=== PATIENT | female | born 1945 | race Caucasian/White ===

== ENCOUNTER → 2017-05-05 | Outpatient (CLI) | payer MEDICARE, OTHER ==
[2017-05-05 12:23] LABS: HEMATOCRIT 35.4 % (36.0-47.0); HGB HCT DIFFERENCE 0.6; MEAN CORPUSCULAR HEMOGLOBIN 30.5 pg (27.0-33.4); MEAN CORPUSCULAR VOLUME 90 fl (80-97); RED BLOOD COUNT 3.95 10^6/uL (3.72-5.28); RED CELL DISTRIBUTION WIDTH 13.2 % (11.5-14.0); WHITE BLOOD COUNT 5.9 10^3/uL (4.0-10.5)
[2017-05-05 12:45] LABS: ALANINE AMINOTRANSFERASE 34 U/L (9-52); ALBUMIN 4.6 g/dL (3.5-5.0); ALKALINE PHOSPHATASE 84 U/L (38-126); ANION GAP 11 (5-19); ASPARTATE AMINO TRANSFERASE 25 U/L (14-36); BILIRUBIN,DIRECT 0.3 mg/dL (0.0-0.4); BILIRUBIN,TOTAL 0.5 mg/dL (0.2-1.3); BLOOD UREA NITROGEN 19 mg/dL (7-20); CALCIUM 9.5 mg/dL (8.4-10.2); CARBON DIOXIDE 32 mmol/L (22-30); CHLORIDE 103 mmol/L (98-107); CHOLESTEROL 184.27 mg/dL (0-200); CREATININE RESULT 0.81 mg/dL (0.52-1.25); Direct HDL 74 mg/dL (>40); GLUCOSE 95 mg/dL (75-110); MAGNESIUM 1.9 mg/dL (1.6-2.3); POTASSIUM 4.4 mmol/L (3.6-5.0); TOTAL PROTEIN 7.8 g/dL (6.3-8.2); TRIGLYCERIDES 73 mg/dL (<150)
[2017-05-05 12:56] LABS: DIRECT LDL 87 mg/dL (<100)
== END ==
LOC: OD 11:38
PROVIDERS: ATTEND Internal Medicine Cardiovascular Disease
DX: I49.3 Ventricular premature depolarization (principal); E78.00 Pure hypercholesterolemia, unspecified; R53.83 Other fatigue; Z79.899 Other long term (current) drug therapy
CPT/HCPCS: 36415; 80048; 80061; 80076; 83036; 83735; 84443; 85027

== ENCOUNTER 2017-10-13 10:36 | Day surgery (SDC) | payer MEDICARE, OTHER ==
[~2017-10-13 10:36] MED LIST: PROPOFOL INJ 200 MG/20 ML VIAL IV ONE
[2017-10-13] MEDS ORDERED: PROPOFOL INJ 200 MG/20 ML VIAL IV ONE (12:00)
--- NOTE | 2017-10-13 12:40 | Operative Report ---
Operative Report DATE OF SURGERY: 10/13/17 Operative Report: The risks, benefits and alternatives of the procedure including risks of bleeding, perforation requiring surgery are explained to the patient in detail and informed consent is obtained. The patient is brought back to the endoscopy suite and placed in a left, lateral decubital position. Timeout was called. Propofol medications administered. A rectal examination is done which did not reveal any masses, tears or fissures. An Olympus videoscope was inserted into the patient's rectum. The scope was then carefully advanced all the way to the cecum. The cecum was identified by the usual anatomical landmarks including the ileocecal valve as well as the appendiceal office. Photodocumentation was obtained. The scope was then sequentially pulled back via the various segments of the colon including the ascending colon, hepatic flexure, transverse colon, splenic flexure, descending colon and finally into the rectosigmoid portions of the colon. Retroflexion maneuvers performed. PREOPERATIVE DIAGNOSIS: Change in bowel habits POSTOPERATIVE DIAGNOSIS: Tortuous colon, likely external adhesions. Internal hemorrhoids. Mild right-sided colon inflammation status post biopsy OPERATION: Colonoscopy with biopsy SURGEON: KANWAL JANE ANESTHESIA: LMAC TISSUE REMOVED OR ALTERED: As noted above. COMPLICATIONS: None. ESTIMATED BLOOD LOSS: None. INTRAOPERATIVE FINDINGS: As noted above. PROCEDURE: Patient tolerated procedure well. No immediate postprocedure complications are noted. Patient is discharged in good condition. Discharge date 10/13/2017. Discharge diet: Regular. Discharge activity: Regular. 2-3 week follow-up to discuss findings. Patient is instructed call the office or proceed to the emergency room should there be any further problems or questions. We will await pathology.
[2017-10-13 12:41] VITALS: BP 140/76
== END 2017-10-13 12:50 | disposition home or self-care (01) ==
LOC: END 10:36
PROVIDERS: ATTEND Internal Medicine Gastroenterology
PROC: 0DBF8ZX Excision of Right Large Intestine, Via Natural or Artificial Opening Endoscopic, Diagnostic (ICD-10-PCS; principal; 2017-10-13 13:00)
DX: K64.8 Other hemorrhoids (principal); K52.9 Noninfective gastroenteritis and colitis, unspecified; Q43.8 Other specified congenital malformations of intestine; E03.9 Hypothyroidism, unspecified; J44.9 Chronic obstructive pulmonary disease, unspecified; E78.5 Hyperlipidemia, unspecified; I10 Essential (primary) hypertension; Z87.891 Personal history of nicotine dependence; Z79.82 Long term (current) use of aspirin; Z79.51 Long term (current) use of inhaled steroids; Z79.899 Other long term (current) drug therapy; Z99.81 Dependence on supplemental oxygen; Z88.2 Allergy status to sulfonamides; Z88.5 Allergy status to narcotic agent; Z88.8 Allergy status to other drugs, medicaments and biological substances
CPT/HCPCS: 45380; 88305 ×2; J2704; 811

== ENCOUNTER → 2018-05-09 | Outpatient (CLI) | payer MEDICARE ==
--- NOTE | 2018-05-11 15:26 | RADIOLOGY REPORT (SQ) ---
EXAM DESCRIPTION: MRI LUMBAR SPINE WITHOUT COMPLETED DATE/TIME: 05/09/2018 12:17 pm REASON FOR STUDY: ACUTE LEFT SIDED LOW BACK PAIN WITH LEFT SIDED SCIATICA M54.42 LUMBAGO WITH SCIAT ICA, LEFT SIDE COMPARISON: None. TECHNIQUE: Sagittal and Axial imaging includes T1, T2, STIR and gradient echo sequences. Coronal T2/ HASTE imaging. LIMITATIONS: None. FINDINGS: VISUALIZED UPPER ABDOMEN: There is a simple left renal cyst. SEGMENTATION: No transitional anatomy. The lowest well-developed disc space is labeled L5-S1. ALIGNMENT: Anatomic. VERTEBRAE: Intact. BONE MARROW: Normal. No marrow replacement or reactive changes. DISC SIGNAL: There is multilevel disc degenerative disease with loss of normal disc height and signal throughout the lumbar spine. Changes are most prominent at L2-L3, L3-L4 and L4-L5. POSTERIOR ELEMENTS: Generally intact. No pars defect evident. HARDWARE: None in the spine. CORD AND CONUS: Normal in size and signal intensity. Conus at the appropriate level. SOFT TISSUES: No aortic aneurysm seen. No bulky retroperitoneal adenopathy or mass. No paraspinal mas s or fluid. L1-L2: There is broad-based annular disc bulging. There is facet arthropathy. No high-grade central stenosis or nerve root impingement. L2-L3: There is broad-based annular disc bulging results in mild central canal stenosis. No foramina l narrowing. Mild bilateral facet arthropathy. L3-L4: There is broad-based annular disc bulging with mild central stenosis. There is bilateral face t arthropathy. These changes result in bilateral foraminal narrowing. This is symmetric. L4-L5: There is marked disc space narrowing. There is asymmetric right facet arthropathy. There is indentation of the right lateral aspect of the thecal sac. There is bilateral foraminal stenosis rig ht greater than left. L5-S1: No significant spinal stenosis or exit foraminal stenosis. LOWER THORACIC: Incompletely imaged. No stenosis seen. SACRUM: Visualized upper sacrum intact. OTHER: No other significant findings. IMPRESSION: 1. Mild multilevel spondylosis. 2. Mild central stenosis at L2-L3. No nerve root impingement. 3. Mild central stenosis at L3-L4. There is bilateral foraminal narrowing. 4. Asymmetric indentation of the right lateral aspect of the thecal sac secondary to asymmetric face t arthropathy. There is asymmetric narrowing of the right neural foramina. TECHNICAL DOCUMENTATION: JOB ID: [id number] [employer]- All Rights Reserved Reading location - IP/workstation name: [email or web address]
== END ==
LOC: RAD 11:12
PROVIDERS: ATTEND Physician Assistant
DX: M54.42 Lumbago with sciatica, left side (principal); M47.896 Other spondylosis, lumbar region
CPT/HCPCS: 72148

== ENCOUNTER 2019-05-24 17:17 | Emergency (ER) | payer MEDICARE ==
--- NOTE | 2019-05-24 18:01 | ER Document Report ---
ED Medical Screen (RME) - General Chief Complaint: Shortness Of Breath Stated Complaint: SHORTNESS OF BREATH Time Seen by Provider: 05/24/19 17:55 Primary Care Provider: CALI CAMERON PA-C [Primary Care Provider] - Follow up as needed Mode of Arrival: Ambulatory Information source: Patient Notes: This is a 74-year-old female with history of COPD on home oxygen 2 L nasal cannula. Presents emergency department with back pain difficulty breathing. Also complains of her stomach and swelling. Reports nausea denies vomiting diarrhea. Reports her toenails are turning black, possible fungal infection patient reports back pain since March 07. Difficult historian I have greeted and performed a rapid initial assessment of this patient. A comprehensive ED assessment and evaluation of the patient, analysis of test results and completion of the medical decision making process will be conducted by additional ED providers. Dictation of this chart was performed using voice recognition software; therefore, there may be some unintended grammatical errors. TRAVEL OUTSIDE OF THE [place] IN LAST 30 DAYS: No - Related Data Allergies/Adverse Reactions: oxycodone Allergy (Intermediate, Verified 05/24/19 17:54) TONGUE AND LIP SWELLING tiotropium [From Spiriva with HandiHaler] Allergy (Intermediate, Verified 05/24/19 17:54) Visual disturbances Sulfa (Sulfonamide Antibiotics) Allergy (Unknown, Verified 05/24/19 17:54) umeclidinium [From Incruse Ellipta] Allergy (Unknown, Verified 05/24/19 17:54) Past Medical History - Past Medical History Cardiac Medical History: Reports: Hx Coronary Artery Disease, Hx Hypercholesterolemia Denies: Hx Heart Attack, Hx Hypertension Pulmonary Medical History: Reports: Hx Asthma, Hx Bronchitis, Hx COPD Denies: Hx Pneumonia Neurological Medical History: Denies: Hx Cerebrovascular Accident, Hx Seizures Musculoskeltal Medical History: Reports Hx Arthritis - OSTEOPENIA Past Surgical History: Reports: Hx Hysterectomy, Hx Orthopedic Surgery - back, Hx Tonsillectomy - Immunizations Hx Diphtheria, Pertussis, Tetanus Vaccination: Yes - 2016 Physical Exam - Vital signs Vitals: Temp Pulse BP Pulse Ox 98.8 F 93 151/78 H 100 05/24/19 17:40 05/24/19 17:40 05/24/19 17:40 05/24/19 17:40 Course - Vital Signs Vital signs: Temp Pulse Resp BP Pulse Ox 98.8 F 83 24 H 170/82 H 100 05/24/19 17:40 05/24/19 20:06 05/24/19 20:06 05/24/19 20:06 05/24/19 20:06 - Laboratory Result Diagrams: 05/24/19 18:15 05/24/19 18:15 Laboratory results interpreted by me: 05/24/19 05/24/19 05/24/19 18:06 18:15 18:15 Hgb 11.8 L Hct 35.0 L RDW 14.8 H Total Protein 8.4 H Ur Leukocyte Esterase TRACE H Doctor's Discharge - Discharge Referrals: CALI CAMERON PA-C [Primary Care Provider] - Follow up as needed
--- NOTE | 2019-05-24 18:19 | RADIOLOGY REPORT (SQ) ---
EXAM DESCRIPTION: CHEST 2 VIEWS COMPLETED DATE/TIME: 05/24/2019 6:09 pm REASON FOR STUDY: sob COMPARISON: 02/13/2015 EXAM PARAMETERS: NUMBER OF VIEWS: two views TECHNIQUE: Digital Frontal and Lateral radiographic views of the chest acquired. RADIATION DOSE: NA LIMITATIONS: none FINDINGS: LUNGS AND PLEURA: Mild chronic interstitial changes and mild hyperexpansion of the lungs. No acute infiltrate or effusion. No mass. MEDIASTINUM AND HILAR STRUCTURES: No masses or contour abnormalities. HEART AND VASCULAR STRUCTURES: Heart normal size. No evidence for failure. BONES: No acute findings. HARDWARE: None in the chest. OTHER: No other significant finding. IMPRESSION: Chronic lung changes with no acute cardiopulmonary finding. TECHNICAL DOCUMENTATION: JOB ID: [id number] [employer]- All Rights Reserved Reading location - IP/workstation name: [email or web address]
[2019-05-24 18:51] LABS: ALBUMIN 4.9 g/dL (3.5-5.0); ALKALINE PHOSPHATASE 98 U/L (38-126); ANION GAP 12 (5-19); ASPARTATE AMINO TRANSFERASE 30 U/L (14-36); BILIRUBIN,DIRECT 0.1 mg/dL (0.0-0.4); BILIRUBIN,TOTAL 0.5 mg/dL (0.2-1.3); BLOOD UREA NITROGEN 12 mg/dL (7-20); CALCIUM 10.2 mg/dL (8.4-10.2); CARBON DIOXIDE 28 mmol/L (22-30); CHLORIDE 103 mmol/L (98-107); GLUCOSE 89 mg/dL (75-110); POTASSIUM 3.8 mmol/L (3.6-5.0); TOTAL PROTEIN 8.4 g/dL (6.3-8.2)
[2019-05-24 18:56] LABS: ABSOLUTE BASOPHILS # (AUTO) 0.1 10^3/uL (0.0-0.2); ABSOLUTE EOSINOPHILS # (AUTO) 0.1 10^3/uL (0.0-0.6); ABSOLUTE LYMPHOCYTES (AUTO) 2.2 10^3/uL (0.5-4.7); ABSOLUTE MONOCYTES (AUTO) 0.7 10^3/uL (0.1-1.4); ABSOLUTE NEUT (AUTO) 3.9 10^3/uL (1.7-8.2); BASOPHILS % (AUTO) 0.8 % (0-2); HEMOGLOBIN 11.8 g/dL (12.0-15.5); LYMPHOCYTES % (AUTO) 30.9 % (13-45); MEAN CORPUSCULAR HEMOGLOBIN 29.6 pg (27.0-33.4); MEAN CORPUSCULAR HGB CONC 33.6 g/dL (32.0-36.0); MEAN CORPUSCULAR VOLUME 88 fl (80-97); PLATELET COUNT 271 10^3/uL (150-450); RED BLOOD COUNT 3.97 10^6/uL (3.72-5.28); RED CELL DISTRIBUTION WIDTH 14.8 % (11.5-14.0); SEGMENTED NEUTROPHILS % (AUTO) 56.3 % (42-78); TOTAL CELLS COUNTED % (AUTO) 100 %
--- NOTE | 2019-05-24 19:12 | EKG REPORT ---
SEVERITY:- BORDERLINE ECG - SINUS RHYTHM PROBABLE LEFT ATRIAL ABNORMALITY : Confirmed by: Ramy Garcia MD 24-May-2019 19:11:55
[2019-05-24 19:16] LABS: APPEARANCE,URINE CLEAR; BILIRUBIN,URINE NEGATIVE (NEGATIVE); COLOR,URINE YELLOW; GLUCOSE, URINE NEGATIVE (NEGATIVE); KETONES,URINE NEGATIVE (NEGATIVE); LEUKOCYTE ESTERASE,URINE TRACE (NEGATIVE); NITRITE,URINE NEGATIVE (NEGATIVE); PROTEIN,URINE NEGATIVE (NEGATIVE); UROBILINOGEN,URINE NEGATIVE mg/dL (<2.0)
--- NOTE | 2019-05-24 21:54 | ER Document Report ---
ED General - General Chief Complaint: Shortness Of Breath Stated Complaint: SHORTNESS OF BREATH Time Seen by Provider: 05/24/19 17:55 Primary Care Provider: CALI CAMERON PA-C [Primary Care Provider] - Follow up as needed Mode of Arrival: Ambulatory TRAVEL OUTSIDE OF THE [place] IN LAST 30 DAYS: No - HPI Notes: Patient is a 74-year-old female who presents the emergency department for evaluation of multiple issues. The patient tells me that she was somewhat short of breath with exertion earlier today, but she denies that feeling now. She states she is also felt dizzy, but denies that feeling now. She states she has had ringing in her years. She states her toenails are turning black. She states she is eating and drinking normally. States she taking her medications as prescribed. She states she had a fever, but when I asked her about it she s ays her highest temperature was 98.9. She states "I usually run around 96." Has not discussed any of these issues with her primary care provider. - Related Data Allergies/Adverse Reactions: oxycodone Allergy (Intermediate, Verified 05/24/19 17:54) TONGUE AND LIP SWELLING tiotropium [From Spiriva with HandiHaler] Allergy (Intermediate, Verified 05/24/19 17:54) Visual disturbances Sulfa (Sulfonamide Antibiotics) Allergy (Unknown, Verified 05/24/19 17:54) umeclidinium [From Incruse Ellipta] Allergy (Unknown, Verified 05/24/19 17:54) Home Medications: vitamin d3. allergy relief. sertraline. calcium. atorvastatin. ibuprofen. gas relief. omeprazole. magnesium. asa. antacid. multivitamin. levothyroxine. acetaminophen. iron. advair Past Medical History - General Information source: Patient - Social History Smoking Status: Former Smoker Chew tobacco use (# tins/day): No Frequency of alcohol use: None Drug Abuse: None Family History: None Patient has suicidal ideation: No Patient has homicidal ideation: No - Past Medical History Cardiac Medical History: Reports: Hx Coronary Artery Disease, Hx Hypercholeste rolemia Denies: Hx Heart Attack, Hx Hypertension Pulmonary Medical History: Reports: Hx Asthma, Hx Bronchitis, Hx COPD Denies: Hx Pneumonia Neurological Medical History: Denies: Hx Cerebrovascular Accident, Hx Seizures Musculoskeletal Medical History: Reports Hx Arthritis - OSTEOPENIA Past Surgical History: Reports: Hx Hysterectomy, Hx Orthopedic Surgery - back, Hx Tonsillectomy - Immunizations Hx Diphtheria, Pertussis, Tetanus Vaccination: Yes - 2017 Hx Pneumococcal Vaccination: 03/07/15 Review of Systems - Review of Systems Constitutional: See HPI EENT: See HPI Cardiovascular: See HPI Respiratory: See HPI Gastrointestinal: No symptoms reported Genitourinary: No symptoms reported Musculoskeletal: No symptoms reported Skin: See HPI Neurological/Psychological: See HPI Physical Exam - Vital signs Vitals: Temp Pulse BP Pulse Ox 98.8 F 93 151/78 H 100 05/24/19 17:40 05/24/19 17:40 05/24/19 17:40 05/24/19 17:40 - Notes Notes: Is a pleasant 74-year-old female who appears her stated age in no acute distress. Vital signs reviewed, please refer to chart. Head is normocephalic, atraumatic. Pupils equal round, reactive to light. Right TM is partially obscured by cerumen, but what is visualized is pearly castañeda with good light reflex. Oral mucosa is moist. Garcia is without erythema or exudate. Uvula is midline. Neck is supple without meningismus. Heart is regular rate and rhythm. Lungs are clear to auscultation bilaterally. Abdomen is soft, nontender, normoactive bowel sounds throughout. Extremities without cyanosis, clubbing. Posterior calves are nontender. Peripheral pulses are equal. Skin is warm and dry. Patient has findings under her and left great toenails consistent with likely subungual hematoma. Patient is awake, alert, oriented x3. Cranial nerves II - XII are grossly intact without focal neurological deficits. Strength is plus 5 out of 5 bilateral upper and lower extremities. Sensation is intact. Reflexes symmetrical. Intact [id number]-[id number], rapid alternating movements, [id number]. Course - Re-evaluation Re-evalutation: 05/24/19 21:52 Patient presents emergency department for evaluation of the multitude of pr oblems. On exam her lungs are clear to auscultation. Late on her normal oxygen she is 100%. Her laboratory investigations and imaging failed to reveal any significant abnormality. I do not have a clear reason for dizziness or tenderness. I explained to the patient that her toenails seem to be revealing subungual hematomas, but she denies any trauma. I explained her that this needs to be followed up. On rare occasion melanomas another significant diagnoses have been found in these scenarios. She voiced understanding. She is to follow-up with Cali Cameron, return to the ED with worsening or new concerning symptoms of any sort. - Vital Signs Vital signs: Temp Pulse Resp BP Pulse Ox 98.8 F 83 24 H 170/82 H 100 05/24/19 17:40 05/24/19 20:06 05/24/19 20:06 05/24/19 20:06 05/24/19 20:06 - Laboratory Result Diagrams: 05/24/19 18:15 05/24/19 18:15 Laboratory results interpreted by me: 05/24/19 05/24/19 05/24/19 18:06 18:15 18:15 Hgb 11.8 L Hct 35.0 L RDW 14.8 H Total Protein 8.4 H Ur Leukocyte Esterase TRACE H - Diagnostic Test Radiology reviewed: Reports reviewed Radiology results interpreted by me: 05/24/19 21:53 Chest X-Ray 05/24/19 17:58 IMPRESSION: Chronic lung changes with no acute cardiopulmonary finding. - EKG Interpretation by Me Additional EKG results interpreted by me: 05/24/19 21:53 Sinus mechanism with rate of 78 bpm. Normal axis and intervals, no acute ST changes concerning for ischemia or infarction. Discharge - Discharge Clinical Impression: Subungual hematoma of great toe of right foot, Dizziness, Shortness of breath, Tinnitus of right ear Condition: Stable Disposition: HOME, SELF-CARE Instructions: Dizziness ([facility]), Dyspnea, Nonspecific ([facility]) Additional Instructions: No clear cause was found for your symptoms today. The darkening of the skin under your nail seems most likely a bruise, but this needs followed up by your primary care provider to rule out a more serious condition. Follow-up with her this week. If you develop increased difficulty breathing, chest pain, or any other new or concerning symptoms, please return immediately to the emergency department for evaluation. Referrals: CALI CAMERON PA-C [Primary Care Provider] - Follow up as needed
[2019-05-24 22:19] VITALS: BP 122/81
== END 2019-05-24 22:16 | disposition home or self-care (01) ==
LOC: ER 17:17
DX: H93.11 Tinnitus, right ear (principal); M79.81 Nontraumatic hematoma of soft tissue; R06.02 Shortness of breath; R42 Dizziness and giddiness; I25.10 Atherosclerotic heart disease of native coronary artery without angina pectoris; E78.00 Pure hypercholesterolemia, unspecified; Z88.6 Allergy status to analgesic agent; Z88.2 Allergy status to sulfonamides; Z90.710 Acquired absence of both cervix and uterus
CPT/HCPCS: 36415; 71046; 80053; 81001; 84484; 85025; 93005; 93010; 99285

== ENCOUNTER 2019-06-26 13:52 | Emergency (ER) | payer MEDICARE ==
[2019-06-26] MEDS ORDERED: ASPIRIN 81 MG TABLET, CHEWABLE PO ONE (14:16)
[2019-06-26] MEDS ORDERED: TRAMADOL HCL 50 MG TABLET PO ONE (14:16)
[2019-06-26] MEDS ORDERED: IPRATROPIUM/ALBUTEROL 0.5-2.5 MG/3 ML AMPUL NEB ONE (14:16)
--- NOTE | 2019-06-26 14:19 | ER Document Report ---
ED Medical Screen (RME) - General Chief Complaint: Back Pain Stated Complaint: BACK PAIN Time Seen by Provider: 06/26/19 14:09 Primary Care Provider: CALI CAMERON PA-C [Primary Care Provider] - Follow up as needed Mode of Arrival: Wheelchair Information source: Patient Notes: Patient presents complaining of upper back pain for the past 3 months that worsened today. Patient states pain does radiate to the anterior chest area. Patient reports cough but states she has COPD. Patient states she has had some nausea and difficulty breathing. Patient denies any urinary symptoms. Patient denies any recent trauma. I have greeted and performed a rapid initial assessment of this patient. A comprehensive ED assessment and evaluation of the patient, analysis of test results and completion of the medical decision making process will be conducted by additional ED providers. TRAVEL OUTSIDE OF THE [place] IN LAST 30 DAYS: No - Related Data Allergies/Adverse Reactions: oxycodone Allergy (Intermediate, Verified 05/24/19 17:54) TONGUE AND LIP SWELLING tiotropium [From Spiriva with HandiHaler] Allergy (Intermediate, Verified 05/24/19 17:54) Visual disturbances Sulfa (Sulfonamide Antibiotics) Allergy (Unknown, Verified 05/24/19 17:54) umeclidinium [From Incruse Ellipta] Allergy (Unknown, Verified 05/24/19 17:54) Past Medical History - Social History Chew tobacco use (# tins/day): No Frequency of alcohol use: None Drug Abuse: None - Past Medical History Cardiac Medical History: Reports: Hx Coronary Artery Disease, Hx Hypercholester olemia Denies: Hx Heart Attack, Hx Hypertension Pulmonary Medical History: Reports: Hx Asthma, Hx Bronchitis, Hx COPD Denies: Hx Pneumonia Neurological Medical History: Denies: Hx Cerebrovascular Accident, Hx Seizures Musculoskeltal Medical History: Reports Hx Arthritis - OSTEOPENIA Past Surgical History: Reports: Hx Hysterectomy, Hx Orthopedic Surgery - back, Hx Tonsillectomy - Immunizations Hx Diphtheria, Pertussis, Tetanus Vaccination: Yes - 2016 Physical Exam - Vital signs Vitals: Temp Pulse Resp BP Pulse Ox 98.3 F 80 20 147/108 H 95 06/26/19 14:03 06/26/19 14:03 06/26/19 14:03 06/26/19 14:03 06/26/19 14:03 - General General appearance: Alert, Anxious Notes: Patient restless in triage, patient with upper thoracic tenderness that radiates to the upper anterior chest. Patient with scattered wheezing bilaterally. Patient with tenderness with palpation. Course - Vital Signs Vital signs: Temp Pulse Resp BP Pulse Ox 98.3 F 80 20 147/108 H 95 06/26/19 14:14 06/26/19 14:03 06/26/19 14:14 06/26/19 14:03 06/26/19 14:14 Doctor's Discharge - Discharge Referrals: CALI CAMERON PA-C [Primary Care Provider] - Follow up as needed
--- NOTE | 2019-06-26 16:39 | RADIOLOGY REPORT (SQ) ---
EXAM DESCRIPTION: CHEST SINGLE VIEW COMPLETED DATE/TIME: 06/26/2019 4:27 pm REASON FOR STUDY: upper chest/back pain COMPARISON: 05/24/2019 TECHNIQUE: Single frontal radiographic view of the chest acquired. NUMBER OF VIEWS: One view. LIMITATIONS: None. FINDINGS: LUNGS AND PLEURA: No pneumothorax. No consolidation or pleural effusion. MEDIASTINUM AND HILAR STRUCTURES: Stable. HEART AND VASCULAR STRUCTURES: Stable. BONES: No acute findings. HARDWARE: None in the chest. OTHER: No other significant finding. IMPRESSION: NO ACUTE FINDINGS. TECHNICAL DOCUMENTATION: JOB ID: [id number] 2010 [employer]- All Rights Reserved Reading location - IP/workstation name: [email or web address]
[2019-06-26 16:46] LABS: ABSOLUTE BASOPHILS # (AUTO) 0.1 10^3/uL (0.0-0.2); ABSOLUTE EOSINOPHILS # (AUTO) 0.1 10^3/uL (0.0-0.6); ABSOLUTE MONOCYTES (AUTO) 0.8 10^3/uL (0.1-1.4); BASOPHILS % (AUTO) 0.7 % (0-2); EOSINOPHILS % (AUTO) 1.1 % (0-6); HEMATOCRIT 36.7 % (36.0-47.0); HEMOGLOBIN 12.4 g/dL (12.0-15.5); LYMPHOCYTES % (AUTO) 24.9 % (13-45); MEAN CORPUSCULAR HEMOGLOBIN 30.2 pg (27.0-33.4); MEAN CORPUSCULAR HGB CONC 33.8 g/dL (32.0-36.0); MEAN CORPUSCULAR VOLUME 89 fl (80-97); MONOCYTES % (AUTO) 9.6 % (3-13); PLATELET COUNT 269 10^3/uL (150-450); RED BLOOD COUNT 4.11 10^6/uL (3.72-5.28); RED CELL DISTRIBUTION WIDTH 14.7 % (11.5-14.0); SEGMENTED NEUTROPHILS % (AUTO) 63.7 % (42-78); TOTAL CELLS COUNTED % (AUTO) 100 %; WHITE BLOOD COUNT 7.9 10^3/uL (4.0-10.5)
[2019-06-26 17:09] LABS: ALBUMIN 4.8 g/dL (3.5-5.0); ALKALINE PHOSPHATASE 109 U/L (38-126); ANION GAP 11 (5-19); ASPARTATE AMINO TRANSFERASE 28 U/L (14-36); BILIRUBIN,DIRECT 0.2 mg/dL (0.0-0.4); BILIRUBIN,TOTAL 0.6 mg/dL (0.2-1.3); BLOOD UREA NITROGEN 9 mg/dL (7-20); CALCIUM 10.2 mg/dL (8.4-10.2); CARBON DIOXIDE 28 mmol/L (22-30); CHLORIDE 103 mmol/L (98-107); GLUCOSE 97 mg/dL (75-110); POTASSIUM 3.8 mmol/L (3.6-5.0); TOTAL PROTEIN 8.3 g/dL (6.3-8.2)
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
--- NOTE | 2019-06-26 21:25 | EKG REPORT ---
SEVERITY:- OTHERWISE NORMAL ECG - SINUS RHYTHM BORDERLINE RIGHT AXIS DEVIATION : Confirmed by: Vivi Caballero 26-Jun-2019 21:25:01
[2019-06-26 23:25] VITALS: BP 146/69
== END 2019-06-26 21:15 | disposition home or self-care (01) ==
LOC: ER 13:52
DX: M62.830 Muscle spasm of back (principal); M54.6 Pain in thoracic spine; I25.10 Atherosclerotic heart disease of native coronary artery without angina pectoris; E78.00 Pure hypercholesterolemia, unspecified; J45.909 Unspecified asthma, uncomplicated; J44.9 Chronic obstructive pulmonary disease, unspecified; Z88.6 Allergy status to analgesic agent; Z88.2 Allergy status to sulfonamides; Z90.710 Acquired absence of both cervix and uterus
CPT/HCPCS: 93005; 94640; 99285; 36415; 85025; 80053; 84484; 71045; 93010; A9270 ×3; J7620

== ENCOUNTER 2019-08-29 19:11 | Emergency (ER) | payer MEDICARE ==
[2019-08-29 20:17] LABS: ABSOLUTE BASOPHILS # (AUTO) 0.1 10^3/uL (0.0-0.2); ABSOLUTE EOSINOPHILS # (AUTO) 0.2 10^3/uL (0.0-0.6); ABSOLUTE LYMPHOCYTES (AUTO) 1.8 10^3/uL (0.5-4.7); ABSOLUTE MONOCYTES (AUTO) 0.5 10^3/uL (0.1-1.4); ABSOLUTE NEUT (AUTO) 3.5 10^3/uL (1.7-8.2); EOSINOPHILS % (AUTO) 2.7 % (0-6); HEMATOCRIT 35.4 % (36.0-47.0); HEMOGLOBIN 12.2 g/dL (12.0-15.5); LYMPHOCYTES % (AUTO) 30.1 % (13-45); MEAN CORPUSCULAR HEMOGLOBIN 30.9 pg (27.0-33.4); MEAN CORPUSCULAR HGB CONC 34.5 g/dL (32.0-36.0); MEAN CORPUSCULAR VOLUME 90 fl (80-97); PLATELET COUNT 248 10^3/uL (150-450); RED BLOOD COUNT 3.94 10^6/uL (3.72-5.28); SEGMENTED NEUTROPHILS % (AUTO) 58.2 % (42-78); TOTAL CELLS COUNTED % (AUTO) 100 %
--- NOTE | 2019-08-29 20:35 | ER Document Report ---
ED Medical Screen (RME) - General Chief Complaint: Psych Problem Stated Complaint: IVC Time Seen by Provider: 08/29/19 19:31 Primary Care Provider: CALI CAMERON PA-C [Primary Care Provider] - Follow up as needed Mode of Arrival: Ambulatory Information source: Patient Notes: 74-year-old female patient presenting via [facility] department on IVC papers. Patient apparently having delusions that people are out to kill her. Her son is also present and endorses this behavior. She lives by herself. She denies any suicidal or homicidal ideations. She does endorse that people were following them here to the emergency department. I have greeted and performed a rapid initial assessment of this patient. A comprehensive ED assessment and evaluation of the patient, analysis of test results and completion of the medical decision making process will be conducted by additional ED providers. I have specifically instructed the patient or family members with the patient to immediately return to any nursing staff should anything change in the patient's condition or with their chief complaint. TRAVEL OUTSIDE OF THE [place] IN LAST 30 DAYS: No - Related Data Allergies/Adverse Reactions: oxycodone Allergy (Intermediate, Verified 05/24/19 17:54) TONGUE AND LIP SWELLING tiotropium [From Spiriva with HandiHaler] Allergy (Intermediate, Verified 05/24/19 17:54) Visual disturbances Sulfa (Sulfonamide Antibiotics) Allergy (Unknown, Verified 05/24/19 17:54) umeclidinium [From Incruse Ellipta] Allergy (Unknown, Verified 05/24/19 17:54) Past Medical History - Social History Chew tobacco use (# tins/day): No Frequency of alcohol use: None Drug Abuse: None - Past Medical History Cardiac Medical History: Reports: Hx Coronary Artery Disease, Hx Hypercholesterolemia Denies: Hx Heart Attack, Hx Hypertension Pulmonary Medical History: Reports: Hx Asthma, Hx Bronchitis, Hx COPD Denies: Hx Pneumonia Neurological Medical History: Denies: Hx Cerebrovascular Accident, Hx Seizures Musculoskeltal Medical History: Reports Hx Arthritis - OSTEOPENIA Past Surgical History: Reports: Hx Hysterectomy, Hx Orthopedic Surgery - back, Hx Tonsillectomy - Immunizations Hx Diphtheria, Pertussis, Tetanus Vaccination: Yes - 2017 Physical Exam - Vital signs Vitals: Temp Pulse Resp BP Pulse Ox 98.5 F 98 16 151/66 H 97 08/29/19 19:17 08/29/19 19:17 08/29/19 19:17 08/29/19 19:17 08/29/19 19:17 Course - Vital Signs Vital signs: Temp Pulse Resp BP Pulse Ox 98.5 F 98 16 151/66 H 97 08/29/19 19:17 08/29/19 19:17 08/29/19 19:17 08/29/19 19:17 08/29/19 19:17 - Laboratory Result Diagrams: 08/29/19 20:00 08/29/19 20:00 Laboratory results interpreted by me: 08/29/19 20:00 Hct 35.4 L Doctor's Discharge - Discharge Referrals: CALI CAMERON PA-C [Primary Care Provider] - Follow up as needed
[2019-08-29 20:41] LABS: ALBUMIN 4.6 g/dL (3.5-5.0); ALKALINE PHOSPHATASE 107 U/L (38-126); ANION GAP 7 (5-19); ASPARTATE AMINO TRANSFERASE 27 U/L (14-36); BILIRUBIN,TOTAL 0.3 mg/dL (0.2-1.3); BLOOD UREA NITROGEN 15 mg/dL (7-20); CALCIUM 9.6 mg/dL (8.4-10.2); CARBON DIOXIDE 31 mmol/L (22-30); CHLORIDE 102 mmol/L (98-107); GLUCOSE 100 mg/dL (75-110); POTASSIUM 4.5 mmol/L (3.6-5.0); TOTAL PROTEIN 7.9 g/dL (6.3-8.2)
[2019-08-29 20:42] LABS: ACETAMINOPHEN < 10 ug/mL (10-30); ALCOHOL < 10 mg/dL (NONE DETECTED); SALICYLATE < 1.0 mg/dL (2.0-20.0)
--- NOTE | 2019-08-29 23:13 | EKG REPORT ---
SEVERITY:- ABNORMAL ECG - SINUS RHYTHM MULTIFORM VENTRICULAR PREMATURE COMPLEXES : Confirmed by: Vivi Caballero 29-Aug-2019 23:13:02
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
[2019-08-30 00:07] LABS: APPEARANCE,URINE SLIGHTLY-CLOUDY; BILIRUBIN,URINE NEGATIVE (NEGATIVE); COLOR,URINE STRAW; GLUCOSE, URINE NEGATIVE (NEGATIVE); KETONES,URINE NEGATIVE (NEGATIVE); LEUKOCYTE ESTERASE,URINE LARGE (NEGATIVE); NITRITE,URINE NEGATIVE (NEGATIVE); PROTEIN,URINE NEGATIVE (NEGATIVE); URINE SPECIFIC GRAVITY 1.006; UROBILINOGEN,URINE NEGATIVE mg/dL (<2.0)
[2019-08-30 00:21] LABS: URINE AMPHETAMINES SCREEN NEGATIVE; URINE BARBITURATES SCREEN NEGATIVE; URINE COCAINE SCREEN NEGATIVE; URINE MARIJUANA (THC) SCREEN NEGATIVE; URINE METHADONE SCREEN NEGATIVE; URINE PHENCYCLIDINE SCREEN NEGATIVE
[2019-08-30 00:25] LABS: URINE BENZODIAZEPINES SCREEN UNCONFIRMED POSITIVE
[2019-08-30] MEDS: CEPHALEXIN 500 MG CAPSULE PO SCH ×2 (01:33→09:14)
--- NOTE | 2019-08-30 12:16 | ER Document Report ---
Doctor's Note Notes: 08/30/19 12:49 Viewed patient rounded on. Patient standing at the doorway of her room without oxygen on. No shortness of breath respiratory rate even unlabored PHYSICAL EXAMINATION: GENERAL: Well-appearing and in no acute distress HEAD: Atraumatic, normocephalic. EYES: Pupils equal round and reactive to light, extraocular movements intact, sclera anicteric, conjunctiva are normal. ENT: nares patent, oropharynx clear without exudates. Moist mucous membranes. NECK: Normal range of motion, supple without lymphadenopathy LUNGS: CTAB and equal. No wheezes rales or rhonchi. HEART: Regular rate and rhythm without murmurs ABDOMEN: Soft, no tenderness. No guarding, no rebound EXTREMITIES: Normal range of motion, no pitting edema. No cyanosis. NEUROLOGICAL: Cranial nerves grossly intact. Normal sensory/motor exams. PSYCH: Normal mood, normal affect. SKIN: Warm, Dry, normal turgor, no rashes or lesions noted 08/30/19 17:03 Patient to be discharged to the care of her son. Son and patient were instructed on antibiotics, Depakote and BuSpar [facility] [place].
[2019-08-30] MEDS ORDERED: HALOPERIDOL DECANOATE INJ 100 MG/1 ML VIAL IM ONE (12:20)
[2019-08-30] MEDS ORDERED: BUSPIRONE HCL 10 MG TABLET PO SCH (12:30)
[2019-08-30] MEDS ORDERED: DIVALPROEX SODIUM 250 MG TAB.SR.24H PO SCH (13:00)
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
[2019-08-30 17:19] VITALS: BP 100/56
== END 2019-08-30 17:21 | disposition home or self-care (01) ==
LOC: ER 19:11
DX: F22 Delusional disorders (principal); N39.0 Urinary tract infection, site not specified; R31.9 Hematuria, unspecified; I25.10 Atherosclerotic heart disease of native coronary artery without angina pectoris; I49.3 Ventricular premature depolarization; F41.9 Anxiety disorder, unspecified; J44.9 Chronic obstructive pulmonary disease, unspecified; Z99.81 Dependence on supplemental oxygen; Z87.891 Personal history of nicotine dependence; Z88.6 Allergy status to analgesic agent; Z88.5 Allergy status to narcotic agent; Z88.8 Allergy status to other drugs, medicaments and biological substances; Z88.2 Allergy status to sulfonamides
CPT/HCPCS: 93005; 99285; 36415; 87086; 80307 ×4; 85025; 87088; 80053; 81001; 93010; A9270 ×3; J3490

== ENCOUNTER 2019-09-04 09:44 | Emergency (ER) | payer MEDICARE ==
[2019-09-04 11:16] LABS: ABSOLUTE BASOPHILS # (AUTO) 0.1 10^3/uL (0.0-0.2); ABSOLUTE EOSINOPHILS # (AUTO) 0.2 10^3/uL (0.0-0.6); ABSOLUTE LYMPHOCYTES (AUTO) 1.3 10^3/uL (0.5-4.7); ABSOLUTE MONOCYTES (AUTO) 0.4 10^3/uL (0.1-1.4); ABSOLUTE NEUT (AUTO) 2.9 10^3/uL (1.7-8.2); BASOPHILS % (AUTO) 1.1 % (0-2); EOSINOPHILS % (AUTO) 3.3 % (0-6); HEMATOCRIT 38.2 % (36.0-47.0); LYMPHOCYTES % (AUTO) 26.1 % (13-45); MEAN CORPUSCULAR HEMOGLOBIN 30.9 pg (27.0-33.4); MEAN CORPUSCULAR HGB CONC 34.1 g/dL (32.0-36.0); MEAN CORPUSCULAR VOLUME 91 fl (80-97); MONOCYTES % (AUTO) 9.1 % (3-13); PLATELET COUNT 243 10^3/uL (150-450); RED BLOOD COUNT 4.23 10^6/uL (3.72-5.28); RED CELL DISTRIBUTION WIDTH 13.9 % (11.5-14.0); SEGMENTED NEUTROPHILS % (AUTO) 60.4 % (42-78); TOTAL CELLS COUNTED % (AUTO) 100 %; WHITE BLOOD COUNT 4.8 10^3/uL (4.0-10.5)
--- NOTE | 2019-09-04 11:27 | ER Document Report ---
ED General - General Chief Complaint: Psych Problem Stated Complaint: BEHAVIORAL/IVC Time Seen by Provider: 09/04/19 09:57 Primary Care Provider: CALI CAMERON PA-C [Primary Care Provider] - Follow up as needed Notes: 74-year-old female presents as an involuntary commitment by son with . Per IVC paperwork and Attorney Lawyer patient is delusional. Patient states that her son will say stuff to make her upset. Patient denies any SI or HI. Patient denies any chest pain, dyspnea, nausea/vomiting, abdominal pain, fever. Patient denies any SI/HI or auditory/visual hallucinations. TRAVEL OUTSIDE OF THE [place] IN LAST 30 DAYS: No - Related Data Allergies/Adverse Reactions: oxycodone Allergy (Intermediate, Verified 05/24/19 17:54) TONGUE AND LIP SWELLING tiotropium [From Spiriva with HandiHaler] Allergy (Intermediate, Verified 05/24/19 17:54) Visual disturbances Sulfa (Sulfonamide Antibiotics) Allergy (Unknown, Verified 05/24/19 17:54) umeclidinium [From Incruse Ellipta] Allergy (Unknown, Verified 05/24/19 17:54) Past Medical History - Social History Smoking Status: Unknown if Ever Smoked Family History: None - Past Medical History Cardiac Medical History: Reports: Hx Coronary Artery Disease, Hx Hyper cholesterolemia Denies: Hx Heart Attack, Hx Hypertension Pulmonary Medical History: Reports: Hx Asthma, Hx Bronchitis, Hx COPD Denies: Hx Pneumonia Neurological Medical History: Denies: Hx Cerebrovascular Accident, Hx Seizures Musculoskeletal Medical History: Reports Hx Arthritis - OSTEOPENIA Past Surgical History: Reports: Hx Hysterectomy, Hx Orthopedic Surgery - back, Hx Tonsillectomy - Immunizations Hx Diphtheria, Pertussis, Tetanus Vaccination: Yes - 2017 Hx Pneumococcal Vaccination: 03/07/15 Review of Systems - Review of Systems Notes: Constitutional: Negative for fever. HENT: Negative for sore throat. Eyes: Negative for visual changes. Cardiovascular: Negative for chest pain. Respiratory: Negative for shortness of breath. Gastrointestinal: Negative for abdominal pain, vomiting or diarrhea. Genitourinary: Negative for dysuria. Musculoskeletal: Negative for back pain. Skin: Negative for rash. Neurological: Negative for headaches, weakness or numbness. Psych: Negative for hallucinations/SI/HI. 10 point ROS negative except as marked above and in HPI. Physical Exam - Vital signs Vitals: Pulse Pulse Ox 39 L 89 L 09/04/19 10:51 09/04/19 10:51 - Notes Notes: GENERAL: Well-appearing, well-nourished and in no acute distress. HEAD: Atraumatic, normocephalic. EYES: Extraocular movements intact, sclera anicteric, conjunctiva are normal. NECK: Normal range of motion, supple without lymphadenopathy or JVD. LUNGS: Breath sounds clear to auscultation bilaterally and equal. No wheezes rales or rhonchi. HEART: Regular rate and rhythm without murmurs, rubs or gallops. ABDOMEN: Soft, nontender. No guarding, no rebound. No masses appreciated. EXTREMITIES: Normal range of motion, no pitting or edema. No clubbing or cyanosis. NEUROLOGICAL: Cranial nerves II through XII grossly intact. Normal speech, normal gait. PSYCH: Normal mood, normal affect. SKIN: Warm, Dry, normal turgor, no rashes or lesions noted. Course - Re-evaluation Re-evalutation: 09/04/19 patient presents for IVC for delusions. Patient denies any auditory/visual hallucinations or SI/HI. Patient denies any complaints at this time. Lungs clear to auscultation bilaterally. Regular rate and rhythm. Abdomen soft nontender. PE is otherwise unremarkable. Lab work initiated to medically clear patient pending psychiatric evaluation. 09/04/19 Pt medically cleared. Per psych team, pt is being transferred to [place]. - Vital Signs Vital signs: Temp Pulse Resp BP Pulse Ox 98.3 F 62 129/53 H 100 09/04/19 11:32 09/04/19 11:32 09/04/19 11:32 09/04/19 11:32 - Laboratory Result Diagrams: 09/04/19 10:55 09/04/19 10:55 Laboratory results interpreted by me: 09/04/19 10:55 Carbon Dioxide 33 H Salicylates < 1.0 L Acetaminophen < 10 L Valproic Acid 11.0 L Discharge - Discharge Clinical Impression: Delusional disorder, Involuntary commitment Condition: Stable Disposition: PSYCH HOSP/UNIT Referrals: CALI CAMERON PA-C [Primary Care Provider] - Follow up as needed
[2019-09-04 11:35] LABS: ALBUMIN 4.4 g/dL (3.5-5.0); ALKALINE PHOSPHATASE 91 U/L (38-126); ANION GAP 9 (5-19); ASPARTATE AMINO TRANSFERASE 27 U/L (14-36); BILIRUBIN,DIRECT 0.2 mg/dL (0.0-0.4); BILIRUBIN,TOTAL 0.5 mg/dL (0.2-1.3); BLOOD UREA NITROGEN 12 mg/dL (7-20); CALCIUM 9.5 mg/dL (8.4-10.2); CARBON DIOXIDE 33 mmol/L (22-30); CHLORIDE 102 mmol/L (98-107); GLUCOSE 89 mg/dL (75-110); POTASSIUM 4.2 mmol/L (3.6-5.0)
[2019-09-04 11:44] LABS: ACETAMINOPHEN < 10 ug/mL (10-30); ALCOHOL < 10 mg/dL (NONE DETECTED); SALICYLATE < 1.0 mg/dL (2.0-20.0)
[2019-09-04 12:02] VITALS: BP 129/53
[2019-09-04] MEDS ORDERED: BUSPIRONE HCL 10 MG TABLET PO SCH (12:45)
[2019-09-04] MEDS ORDERED: DIVALPROEX SODIUM 250 MG TAB.SR.24H PO SCH (13:00)
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
[2019-09-04 14:32] LABS: APPEARANCE,URINE CLEAR; BILIRUBIN,URINE NEGATIVE (NEGATIVE); COLOR,URINE YELLOW; GLUCOSE, URINE NEGATIVE (NEGATIVE); KETONES,URINE NEGATIVE (NEGATIVE); LEUKOCYTE ESTERASE,URINE NEGATIVE (NEGATIVE); NITRITE,URINE NEGATIVE (NEGATIVE); PROTEIN,URINE NEGATIVE (NEGATIVE); UROBILINOGEN,URINE NEGATIVE mg/dL (<2.0)
[2019-09-04 15:15] LABS: URINE AMPHETAMINES SCREEN NEGATIVE; URINE BARBITURATES SCREEN NEGATIVE; URINE COCAINE SCREEN NEGATIVE; URINE MARIJUANA (THC) SCREEN NEGATIVE; URINE METHADONE SCREEN NEGATIVE; URINE PHENCYCLIDINE SCREEN NEGATIVE
[2019-09-04 15:16] LABS: URINE BENZODIAZEPINES SCREEN UNCONFIRMED POSITIVE
[2019-09-04] MEDS ORDERED: ACETAMINOPHEN 325 MG TABLET PO ONE (16:34)
--- NOTE | 2019-09-04 17:29 | EKG REPORT ---
SEVERITY:- NORMAL ECG - SINUS RHYTHM [Remains] NO SIGNIFICANT CHANGE [Now Absent] MULTIFORM VENTRICULAR PREMATURE COMPLEXES : Confirmed by: Denisse Angulo MD 04-Sep-2019 17:29:19
== END 2019-09-04 17:00 ==
LOC: ER 09:44
DX: Z04.6 Encounter for general psychiatric examination, requested by authority (principal); F22 Delusional disorders; I25.10 Atherosclerotic heart disease of native coronary artery without angina pectoris; J44.9 Chronic obstructive pulmonary disease, unspecified; Z88.6 Allergy status to analgesic agent; Z88.5 Allergy status to narcotic agent; Z88.8 Allergy status to other drugs, medicaments and biological substances; Z88.2 Allergy status to sulfonamides
CPT/HCPCS: 93005; 99285; 36415; 80307 ×4; 85025; 80053; 81001; 80164; 93010; A9270 ×3; J3490

== ENCOUNTER 2019-12-06 18:00 | Emergency (ER) | payer MEDICARE ==
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
[2019-12-06 18:56] LABS: ABSOLUTE BASOPHILS # (AUTO) 0.1 10^3/uL (0.0-0.2); ABSOLUTE EOSINOPHILS # (AUTO) 0.2 10^3/uL (0.0-0.6); ABSOLUTE LYMPHOCYTES (AUTO) 2.1 10^3/uL (0.5-4.7); ABSOLUTE MONOCYTES (AUTO) 0.7 10^3/uL (0.1-1.4); ABSOLUTE NEUT (AUTO) 3.5 10^3/uL (1.7-8.2); BASOPHILS % (AUTO) 1.1 % (0-2); EOSINOPHILS % (AUTO) 2.5 % (0-6); HEMATOCRIT 34.9 % (36.0-47.0); HEMOGLOBIN 11.8 g/dL (12.0-15.5); LYMPHOCYTES % (AUTO) 32.6 % (13-45); MEAN CORPUSCULAR HEMOGLOBIN 30.5 pg (27.0-33.4); MEAN CORPUSCULAR HGB CONC 33.8 g/dL (32.0-36.0); MEAN CORPUSCULAR VOLUME 90 fl (80-97); MONOCYTES % (AUTO) 10.1 % (3-13); PLATELET COUNT 264 10^3/uL (150-450); RED BLOOD COUNT 3.87 10^6/uL (3.72-5.28); RED CELL DISTRIBUTION WIDTH 14.4 % (11.5-14.0); SEGMENTED NEUTROPHILS % (AUTO) 53.7 % (42-78); TOTAL CELLS COUNTED % (AUTO) 100 %; WHITE BLOOD COUNT 6.6 10^3/uL (4.0-10.5)
[2019-12-06 19:12] LABS: ALBUMIN 4.3 g/dL (3.5-5.0); ALKALINE PHOSPHATASE 112 U/L (38-126); ANION GAP 7 (5-19); ASPARTATE AMINO TRANSFERASE 28 U/L (14-36); BILIRUBIN,TOTAL 0.3 mg/dL (0.2-1.3); BLOOD UREA NITROGEN 16 mg/dL (7-20); CALCIUM 9.2 mg/dL (8.4-10.2); CARBON DIOXIDE 29 mmol/L (22-30); CHLORIDE 101 mmol/L (98-107); GLUCOSE 96 mg/dL (75-110); POTASSIUM 4.2 mmol/L (3.6-5.0); TOTAL PROTEIN 7.5 g/dL (6.3-8.2)
[2019-12-06 19:13] LABS: ACETAMINOPHEN < 10 ug/mL (10-30); ALCOHOL < 10 mg/dL (NONE DETECTED); SALICYLATE < 1.0 mg/dL (2.0-20.0)
[2019-12-06 20:13] LABS: APPEARANCE,URINE CLEAR; BILIRUBIN,URINE NEGATIVE (NEGATIVE); COLOR,URINE STRAW; GLUCOSE, URINE NEGATIVE (NEGATIVE); KETONES,URINE NEGATIVE (NEGATIVE); LEUKOCYTE ESTERASE,URINE SMALL (NEGATIVE); NITRITE,URINE NEGATIVE (NEGATIVE); PROTEIN,URINE NEGATIVE (NEGATIVE); URINE SPECIFIC GRAVITY 1.004; UROBILINOGEN,URINE NEGATIVE mg/dL (<2.0)
[2019-12-06 20:24] LABS: URINE AMPHETAMINES SCREEN NEGATIVE; URINE BARBITURATES SCREEN NEGATIVE; URINE BENZODIAZEPINES SCREEN UNCONFIRMED POSITIVE; URINE COCAINE SCREEN NEGATIVE; URINE MARIJUANA (THC) SCREEN NEGATIVE; URINE METHADONE SCREEN NEGATIVE; URINE PHENCYCLIDINE SCREEN NEGATIVE
--- NOTE | 2019-12-06 22:34 | EKG REPORT ---
SEVERITY:- ABNORMAL ECG - SINUS RHYTHM FIRST DEGREE AV BLOCK : Confirmed by: Vivi Caballero 06-Dec-2019 22:33:04
[2019-12-07] MEDS: BUSPIRONE HCL 10 MG TABLET PO SCH ×2 (10:54→19:35)
[2019-12-07] MEDS: DIVALPROEX SODIUM 250 MG TABLET.DR PO SCH ×2 (10:54→19:37)
--- NOTE | 2019-12-07 14:33 | ER Document Report ---
Doctor's Note Notes: 12/07/19 14:32 The patient had orders put in yesterday for 4 on the behavioral health recommendations. The patient's regular medications had not been started. Those have been ordered now and are Synthroid 88 mcg daily, and atorvastatin 20 mg daily. They will both be given now and then on a daily basis as long as the pat ient is here. She remains under IVC petition at this time.
[2019-12-07] MEDS: LEVOTHYROXINE SODIUM 0.088 MG TABLET PO SCH (14:52)
[2019-12-07] MEDS: ATORVASTATIN CALCIUM 20 MG TABLET PO SCH (14:52)
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
[2019-12-08] MEDS: LEVOTHYROXINE SODIUM 0.088 MG TABLET PO SCH (10:33)
[2019-12-08] MEDS: BUSPIRONE HCL 10 MG TABLET PO SCH ×2 (10:34→18:29)
[2019-12-08] MEDS: ATORVASTATIN CALCIUM 20 MG TABLET PO SCH (10:34)
[2019-12-08] MEDS: DIVALPROEX SODIUM 250 MG TABLET.DR PO SCH ×2 (10:34→18:29)
--- NOTE | 2019-12-08 12:46 | ER Document Report ---
Doctor's Note Notes: 12/08/19 12:45 Patient sitting quietly in chair, denies any complaints at this time. Patient appears medically clear for transfer discharge pending mental health disposition. PHYSICAL EXAMINATION: GENERAL: Well-appearing and in no acute distress. HEAD: Atraumatic, normocephalic. EYES: sclera anicteric, conjunctiva are normal. ENT: nares patent. Moist mucous membranes. NECK: Normal range of motion, supple without lymphadenopathy LUNGS: CTAB and equal. No wheezes rales or rhonchi. HEART: Regular rate and rhythm without murmurs ABDOMEN: Soft, nontender EXTREMITIES: Normal range of motion BACK: No midline tenderness, No CVA tenderness NEUROLOGICAL: Cranial nerves grossly intact. Normal speech. PSYCH: Normal mood, normal affect. SKIN: Warm, Dry, normal turgor, no rashes or lesions noted 12/08/19 18:01 Mental health team does not feel that patient meets IVC criteria at this time. Patient without any SI or HI. IVC rescinded per mental health team at this time. I do recommend starting patient on Depakote 250 mg twice a day and BuSpar 5 mg twice a day. Mental health team has spoke with patient's daughter who is in agreement with this plan of care. Patient is to follow-up with her primary doctor on outpatient basis for medication refills.
--- NOTE | 2019-12-08 14:47 | RADIOLOGY REPORT (SQ) ---
EXAM DESCRIPTION: CT HEAD WITHOUT IMAGES COMPLETED DATE/TIME: 12/08/2019 2:24 pm REASON FOR STUDY: MCCABE F29 UNSP PSYCHOSIS NOT DUE TO A SUBSTANCE OR KNOWN PHYSIOL C F22 DELUSIONAL D ISORDERS E78.00 PURE HYPERCHOLESTEROLEMIA, UNSPECIFIED COMPARISON: None. TECHNIQUE: Axial images acquired through the brain without intravenous contrast. Images reviewed wi th bone, brain and subdural windows. Additional sagittal and coronal reconstructions were generated. Images stored on PACS. All CT scanners at this facility use dose modulation, iterative reconstruction, and/or weight based d osing when appropriate to reduce radiation dose to as low as reasonably achievable (ALARA). [facility]: Dose Right [facility]: CareDose [facility]: Dose Right [facility]: Teradose 4D [facility]: TDX RADIATION DOSE: CT Rad equipment meets quality standard of care and radiation dose reduction techniq ues were employed. CTDIvol: 53.2 mGy. DLP: 1070 mGy-cm.mGy. LIMITATIONS: None. FINDINGS: VENTRICLES: Prominent. CEREBRUM: No masses. No hemorrhage. No midline shift. Extensive areas of low density in the white matter most likely due to chronic micro-vascular ischemic change. No evidence for acute infarction. CEREBELLUM: No masses. No hemorrhage. No alteration of density. No evidence for acute infarction. EXTRAAXIAL SPACES: Age-related involutional change. No fluid collections. No masses. ORBITS AND GLOBE: No intra- or extraconal masses. Normal contour of globe without masses. CALVARIUM: No fracture. PARANASAL SINUSES: No fluid or mucosal thickening. SOFT TISSUES: No mass or hematoma. OTHER: No other significant finding. IMPRESSION: No evidence of acute intracranial hemorrhage or large vascular territory infarct. Extensive nonspecific white matter changes, likely sequelae of microangiopathic disease. EVIDENCE OF ACUTE STROKE: NO. TECHNICAL DOCUMENTATION: JOB ID: [id number] Quality ID # [id number]: Final reports with documentation of one or more dose reduction techniques (e.g., Au tomated exposure control, adjustment of the mA and/or kV according to patient size, use of iterative reconstruction technique) 2010 [employer]- All Rights Reserved Reading location - IP/workstation name: [email or web address]
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
[2019-12-08 19:14] VITALS: BP 142/68
== END 2019-12-08 20:11 | disposition home or self-care (01) ==
LOC: ER 18:00
DX: F22 Delusional disorders (principal); E78.00 Pure hypercholesterolemia, unspecified; I25.10 Atherosclerotic heart disease of native coronary artery without angina pectoris; Z91.19 Patient's noncompliance with other medical treatment and regimen; Z90.710 Acquired absence of both cervix and uterus; Z88.2 Allergy status to sulfonamides; Z88.6 Allergy status to analgesic agent
CPT/HCPCS: 93005; 99285; 36415; 80307 ×4; 85025; 80053; 81001; 70450; 93010; A9270 ×8

== ENCOUNTER 2019-12-16 18:32 | Emergency (ER) | payer MEDICARE ==
[2019-12-16] MEDS ORDERED: ASPIRIN 81 MG TABLET, CHEWABLE PO ONE (19:21)
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
[2019-12-16 19:44] LABS: ABSOLUTE BASOPHILS # (AUTO) 0.1 10^3/uL (0.0-0.2); ABSOLUTE EOSINOPHILS # (AUTO) 0.1 10^3/uL (0.0-0.6); ABSOLUTE MONOCYTES (AUTO) 0.6 10^3/uL (0.1-1.4); ABSOLUTE NEUT (AUTO) 3.8 10^3/uL (1.7-8.2); BASOPHILS % (AUTO) 0.9 % (0-2); EOSINOPHILS % (AUTO) 2.1 % (0-6); HEMATOCRIT 36.5 % (36.0-47.0); HEMOGLOBIN 12.5 g/dL (12.0-15.5); MEAN CORPUSCULAR HEMOGLOBIN 30.5 pg (27.0-33.4); MEAN CORPUSCULAR HGB CONC 34.2 g/dL (32.0-36.0); MEAN CORPUSCULAR VOLUME 89 fl (80-97); MONOCYTES % (AUTO) 9.7 % (3-13); PLATELET COUNT 255 10^3/uL (150-450); RED BLOOD COUNT 4.09 10^6/uL (3.72-5.28); RED CELL DISTRIBUTION WIDTH 13.6 % (11.5-14.0); SEGMENTED NEUTROPHILS % (AUTO) 57.3 % (42-78); TOTAL CELLS COUNTED % (AUTO) 100 %; WHITE BLOOD COUNT 6.6 10^3/uL (4.0-10.5)
--- NOTE | 2019-12-16 19:49 | RADIOLOGY REPORT (SQ) ---
EXAM DESCRIPTION: CHEST 2 VIEWS IMAGES COMPLETED DATE/TIME: 12/16/2019 7:42 pm REASON FOR STUDY: Racing heart COMPARISON: 06/26/2019 EXAM PARAMETERS: NUMBER OF VIEWS: two views TECHNIQUE: Digital Frontal and Lateral radiographic views of the chest acquired. RADIATION DOSE: NA LIMITATIONS: none FINDINGS: LUNGS AND PLEURA: No opacities, masses or pneumothorax. No pleural effusion. MEDIASTINUM AND HILAR STRUCTURES: No masses or contour abnormalities. HEART AND VASCULAR STRUCTURES: Heart normal size. No evidence for failure. BONES: No acute findings. HARDWARE: None in the chest. OTHER: No other significant finding. IMPRESSION: NO ACUTE RADIOGRAPHIC FINDING IN THE CHEST. TECHNICAL DOCUMENTATION: JOB ID: [id number] 2010 [employer]- All Rights Reserved Reading location - IP/workstation name: [email or web address]
[2019-12-16 19:59] LABS: PROTHROMBIN TIME 14.2 SEC (11.4-15.4)
[2019-12-16 20:00] LABS: PARTIAL THROMBOPLASTIN TIME 28.5 SEC (23.5-35.8)
[2019-12-16 20:08] LABS: ALBUMIN 4.7 g/dL (3.5-5.0); ALKALINE PHOSPHATASE 99 U/L (38-126); ANION GAP 8 (5-19); ASPARTATE AMINO TRANSFERASE 26 U/L (14-36); BILIRUBIN,TOTAL 0.4 mg/dL (0.2-1.3); BLOOD UREA NITROGEN 15 mg/dL (7-20); CALCIUM 9.7 mg/dL (8.4-10.2); CARBON DIOXIDE 29 mmol/L (22-30); CHLORIDE 101 mmol/L (98-107); GLUCOSE 111 mg/dL (75-110)
--- NOTE | 2019-12-16 20:44 | ER Document Report ---
ED General - General Chief Complaint: Irregular Pulse Stated Complaint: IRREGULAR HEART RATE Time Seen by Provider: 12/16/19 19:15 Primary Care Provider: PAULO HERNANDEZ MD [ASSOCIATE] - Follow up as needed Mode of Arrival: Wheelchair Notes: Patient is a 74-year-old white female with a past medical history of COPD and dementia who presents to the emergency department the chief complaint of palpitations that began about 30 minutes prior to arrival. She states she was finishing dinner when she suddenly felt an onset of what she describes as feeling like her heart was jumping in her chest. She states the episode lasted about 30 minutes. She denies any association with pain or shortness of breath. She did not have any loss of consciousness. She denies any history of similar episodes. She states it has not happened since. She reports that she was recently diagnosed with dementia from CT scan and has an appointment with a specialist tomorrow. She denies any complaints here in the ED. TRAVEL OUTSIDE OF THE [place] IN LAST 30 DAYS: No - Related Data Allergies/Adverse Reactions: oxycodone Allergy (Intermediate, Verified 12/16/19 19:20) TONGUE AND LIP SWELLING tiotropium [From Spiriva with HandiHaler] Allergy (Intermediate, Verified 12/16/19 19:20) Visual disturbances Sulfa (Sulfonamide Antibiotics) Allergy (Unknown, Verified 12/16/19 19:20) umeclidinium [From Incruse Ellipta] Allergy (Unknown, Verified 12/16/19 19:20) Past Medical History - General Information source: Patient - Social History Smoking Status: Former Smoker Frequency of alcohol use: None Drug Abuse: None Family History: None, Reviewed & Not Pertinent Patient has homicidal ideation: No - Past Medical History Cardiac Medical History: Reports: Hx Coronary Artery Disease, Hx Hyperchole sterolemia Denies: Hx Heart Attack, Hx Hypertension Pulmonary Medical History: Reports: Hx Asthma, Hx Bronchitis, Hx COPD Denies: Hx Pneumonia Neurological Medical History: Denies: Hx Cerebrovascular Accident, Hx Seizures Musculoskeletal Medical History: Reports Hx Arthritis - OSTEOPENIA Past Surgical History: Reports: Hx Hysterectomy, Hx Orthopedic Surgery - back, Hx Tonsillectomy - Immunizations Hx Diphtheria, Pertussis, Tetanus Vaccination: Yes - 2017 Hx Pneumococcal Vaccination: 03/07/15 Review of Systems - Review of Systems Cardiovascular: Palpitations -: Yes All other systems reviewed and negative Physical Exam - Vital signs Vitals: Temp Pulse Resp BP Pulse Ox 100.3 F 93 20 94/75 L 96 12/16/19 18:54 12/16/19 18:54 12/16/19 18:54 12/16/19 18:54 12/16/19 18:54 - General General appearance: Appears well, Alert In distress: None - Respiratory Respiratory status: No respiratory distress Chest status: Nontender Breath sounds: Normal Chest palpation: Normal - Cardiovascular Rhythm: Regular Heart sounds: Normal auscultation Murmur: No - Abdominal Inspection: Normal Distension: No distension Bowel sounds: Normal Tenderness: Nontender Organomegaly: No organomegaly - Extremities General upper extremity: Normal inspection, Nontender, Normal color, Normal ROM, Normal temperature General lower extremity: Normal inspection, Nontender, Normal color, Normal ROM, Normal temperature, Normal weight bearing. No: Danielle's sign - Neurological Neuro grossly intact: Yes Cognition: Normal Orientation: AAOx4 Imogene Coma Scale Eye Opening: Spontaneous Rush Coma Scale Verbal: Oriented Imogene Coma Scale Motor: Obeys Commands Imogene Coma Scale Total: 15 Speech: Normal Motor strength normal: LUE, RUE, LLE, RLE Sensory: Normal - Psychological Associated symptoms: Normal affect, Normal mood - Skin Skin Temperature: Warm Skin Moisture: Dry Skin Color: Normal Course - Re-evaluation Re-evalutation: 12/16/19 20:48 EKG: Sinus rhythm at 95 bpm. Normal intervals. No STEMI. Interpreted by ED attending. 12/16/19 20:49 Temperature has normalized, think first was an error. Patient's had no further episodes of palpitation. Blood pressure she reports to be normal for her in the low 90s over 60s. Repeat was 120s over 70s. She stable at this time without any acute complaints or issue. She denies any coronavirus exposures or recent sicknesses or illnesses. We will plan to repeat EKG and troponin to rule out any further cardiac etiology. Suggest she be referred to cardiology for Holter monitor. 12/16/19 22:56 Repeat EKG at this time, RI interval has widened again to over 200, otherwise there is no acute ST segment changes and is comparable to previous. Patient is still stable and is had no further episodes of palpitations. Her repeat troponin is negative again. She is stable and appropriate for discharge and outpatient follow-up. We will plan for cardiology referral for Holter monitor and further outpatient monitoring and management. Advise she return here any ER immediately with any new, persistent or worsening symptoms. She verbalized understood and agreed. 12/16/19 22:56 - Vital Signs Vital signs: Temp Pulse Resp BP Pulse Ox 98.8 F 93 19 139/66 H 97 12/16/19 20:54 12/16/19 18:54 12/16/19 22:01 12/16/19 22:00 12/16/19 22:01 - Laboratory Result Diagrams: 12/16/19 19:28 12/16/19 19:28 Laboratory results interpreted by me: 12/16/19 19:28 Glucose 111 H Discharge - Discharge Clinical Impression: Palpitations Condition: Stable Disposition: HOME, SELF-CARE Instructions: Palpitations (Irregular or Rapid Heartrate) (OM) Additional Instructions: Please call the staple laster tomorrow morning when they open for outpatient appointment for further care and management of these palpitations. Please return here any ER immediately with any new, persistent or worsening symptoms. Referrals: PAULO HERNANDEZ MD [ASSOCIATE] - Follow up as needed FLOWER HERNANDEZ MD [ACTIVE STAFF] - Follow up as needed
[2019-12-16 23:21] VITALS: BP 132/65
--- NOTE | 2019-12-17 19:04 | EKG REPORT ---
SEVERITY:- NORMAL ECG - SINUS RHYTHM : Confirmed by: Denisse Angulo MD 17-Dec-2019 19:03:14
--- NOTE | 2019-12-17 19:04 | EKG REPORT ---
SEVERITY:- ABNORMAL ECG - SINUS RHYTHM PROBABLE LEFT ATRIAL ABNORMALITY NONSPECIFIC T ABNORMALITIES, LATERAL LEADS : Confirmed by: Denisse Angulo MD 17-Dec-2019 19:03:22
== END 2019-12-16 23:21 | disposition home or self-care (01) ==
LOC: ER 18:32
DX: R00.2 Palpitations (principal); J44.9 Chronic obstructive pulmonary disease, unspecified; I25.10 Atherosclerotic heart disease of native coronary artery without angina pectoris; Z87.891 Personal history of nicotine dependence; Z88.8 Allergy status to other drugs, medicaments and biological substances; Z88.2 Allergy status to sulfonamides; Z88.6 Allergy status to analgesic agent; Z88.5 Allergy status to narcotic agent
CPT/HCPCS: 93005; 99285; 36415; 83735; 85025; 85610; 85730; 80053; 84484; 71046; 93010; A9270